=== PATIENT | female | born 1985 | race Caucasian/White ===

== ENCOUNTER 2024-12-07 14:47 | Emergency (ER) | payer OTHER ==
[~2024-12-07] VITALS: Ht 157.5 cm; Wt 59.0 kg
[2024-12-07 14:58] VITALS: O2SAT 100
[2024-12-07] MEDS ORDERED: SULF1TAB48 MT (16:33)
[2024-12-07] MEDS ORDERED: IBUP-2029 MT (16:33)
[2024-12-07 16:58] VITALS: BP 154/93; PULSE 79; RESP 18; TEMP 37; O2SAT 99
== END 2024-12-07 16:59 | disposition home or self-care (01) ==
LOC: ER 14:47
DX: L03.012 Cellulitis of left finger (principal); E11.9 Type 2 diabetes mellitus without complications; I10 Essential (primary) hypertension; Z88.5 Allergy status to narcotic agent; Z98.890 Other specified postprocedural states
CPT/HCPCS: 10060; 99283; Z7610; A4606

== ENCOUNTER 2025-01-12 21:11 | Emergency (ER) | payer OTHER ==
[~2025-01-12] VITALS: Ht 157.5 cm; Wt 59.0 kg
[~2025-01-12 21:11] MED LIST: IBUP-2029 MT; SULF1TAB48 MT
[2025-01-12 22:40] VITALS: O2SAT 99
[2025-01-12] MEDS ORDERED: BO1 TP (22:49)
[2025-01-12] MEDS ORDERED: CEPH500C2 MT (22:49)
[2025-01-12 23:10] VITALS: BP 133/75; PULSE 78; RESP 18; TEMP 36.7; O2SAT 100
== END 2025-01-12 23:10 | disposition home or self-care (01) ==
LOC: ER 21:11
DX: M79.645 Pain in left finger(s) (principal); I10 Essential (primary) hypertension; E11.9 Type 2 diabetes mellitus without complications; Z88.5 Allergy status to narcotic agent
CPT/HCPCS: 99283